=== PATIENT | male | born 1975 | race Two or more races ===

== ENCOUNTER 2019-09-23 12:13 | Emergency (ER) | payer OTHER ==
[~2019-09-23] VITALS: Ht 167.6 cm; Wt 79.4 kg
[2019-09-23] MEDS ORDERED: IBUPROFEN 800 MG TAB PO ONE (13:00)
[2019-09-23] MEDS ORDERED: SODIUM CHLORIDE 0.9% 1,000 ML IV ONE ×2 (13:12)
[2019-09-23] MEDS ORDERED: cefTRIAXone 1GM/50ML D5W 50 ML IV ONE (13:15)
[2019-09-23 13:48] LABS: Basophils # (auto) 0.1 uL; Basophils % (auto) 0.5 % (0.0-2.0); Eosinophils # (auto) 0 uL; Eosinophils % (auto) 0.1 % (0.0-7.0); Hematocrit 43.4 % (41.0-53.0); Lymphocytes # (auto) 2.8 uL; Lymphocytes % (auto) 27.5 % (10.0-50.0); Mean Corpuscular Hemoglobin 30.5 pg (28.0-32.0); Mean Corpuscular Hgb Conc. 34.6 g/dL (32.0-36.0); Mean Corpuscular Volume 88.1 fL (80.0-100.0); Monocytes # (auto) 0.9 uL; Monocytes % (auto) 8.6 % (0.0-12.0); Neutrophils # (auto) 6.5 uL; Neutrophils % (auto) 63.3 % (37.0-80.0); Platelet Count (auto) 147 10^3/uL (140-450); Red Blood Cells 4.92 10^6/uL (4.5-5.90); Red Cell Distribution Width 12.8 % (11.8-14.3); White Blood Cell 10.3 10^3/uL (4.4-10.8)
[2019-09-23 14:06] LABS: Albumin 4.1 g/dL (3.4-5.0); Anion Gap 8 (5-15); Blood Urea Nitrogen 10 mg/dL (7-18); Carbon Dioxide 22 mmol/L (21-32); Chloride 105 mmol/L (98-107); Glucose 92 mg/dL (74-106); Potassium 3.6 mmol/L (3.5-5.1); Sodium 135 mmol/L (136-145)
[2019-09-23 14:12] VITALS: BP 119/80
[2019-09-23 14:13] LABS: Alanine Aminotransferase 19 U/L (16-61); Alkaline Phosphatase 63 U/L (45-117); Aspartate Aminotransferase 23 U/L (15-37); BUN/Creatinine Ratio 9.9; Bilirubin, Total 1.2 mg/dL (0.2-1.0); GFR African American 104 mL/min; GFR Non-African American 86 mL/min; Total Protein 8.6 g/dL (6.4-8.2)
== END 2019-09-23 17:18 | disposition home or self-care (01) ==
LOC: EEVIPCON 12:17 → ER 12:17
DX: J10.1 Influenza due to other identified influenza virus with other respiratory manifestations (principal); K02.9 Dental caries, unspecified
CPT/HCPCS: 36415; 71045; 80053; 84484; 85025; 87804; 96365; 99284; J0696; J7030